=== PATIENT | male | born 1970 | race Caucasian/White ===

== ENCOUNTER 2018-04-18 14:24 | Emergency (ER) | payer OTHER ==
[2018-04-18] MEDS ORDERED: NS 1,000 ML IV ONE (14:49)
--- NOTE | 2018-04-18 14:49 | EDPHY ---
H & P Time Seen by Provider: 04/18/18 14:25 HPI/ROS: CHIEF COMPLAINT: Lightheadedness HISTORY OF PRESENT ILLNESS: 47-year-old male presents with lightheadedness. He was standing at work just prior to arrival, when he began to feel lightheaded. He splashed some water on his face and sat down. He felt better after sitting down. He stood up again and had recurrent lightheadedness. After sitting down again, the lightheadedness went away. He then talked to a co -worker and EMS was called. He is asymptomatic currently. He flew from [place] to [place] yesterday. He slept 2 hr last night. REVIEW OF SYSTEMS: complete 10 point ROS reviewed and is negative except for the noted elements in the HPI - Social History Alcohol Use: Sober Drug Use: None - Physical Exam Exam: General Appearance: Alert, pleasant Eyes: Pupils equal and round, no conjunctival pallor or injection ENT, Mouth: Mucous membranes moist Neck: Normal inspection Respiratory: Lungs are clear to auscultation Cardiovascular: Regular rate and rhythm, no murmur Gastrointestinal: Abdomen is soft and nontender Neurological: A&O, nonfocal, normal gait Skin: Warm and dry, no rash Extremities: Nontender, no pedal edema Psychiatric: Mood and affect normal Constitutional: Initial Vital Signs Temperature (C) 37 C 04/18/18 14:46 Heart Rate 78 04/18/18 14:46 Respiratory Rate 16 04/18/18 14:46 Blood Pressure 152/99 H 04/18/18 14:46 O2 Sat (%) 95 04/18/18 14:46 O2 Delivery Mode Room Air Allergies/Adverse Reactions: No Known Allergies Allergy (Unverified 04/18/18 14:44) Home Medications: Medication Instructions Recorded Tamiflu 04/18/18 Medical Decision Making - Diagnostics EKG Interpretation: EKG interpreted by me reveals normal sinus rhythm, rate 81, no ST or T segment changes. Interpretation: Normal EKG ED Course/Re-evaluation: This patient presents with lightheadedness likely secondary to lack of sleep and stress. Stat EKG reveals no evidence of ischemia or dysrhythmia. Vital signs are normal now. Laboratory tests are unremarkable. IV normal saline 1 L given. Ambulated throughout the emergency department and was asymptomatic, no lightheadedness. The patient will return for worsening symptoms or any concerns. Follow-up with PCP. Differential Diagnosis: Differential diagnosis includes though is not limited to cardiac dysrhythmia, CVA, TIA, GI bleed, sepsis, hypoglycemia. - Data Points Laboratory Results: Laboratory Results 04/18/18 14:50 04/18/18 14:50 Medications Given: Discontinued Medications Sodium Chloride (Ns) 1,000 mls @ 0 mls/hr IV EDNOW ONE; Wide Open PRN Reason: Protocol Stop: 04/18/18 14:50 Last Admin: 04/18/18 14:56 Dose: 1,000 mls Point of Care Test Results: Chemistry 04/18/18 14:58 POC Troponin I 0.00 ng/mL ng/mL (0.00-0.08) Departure - Departure Disposition: Home, Routine, Self-Care Clinical Impression: Near syncope Condition: Good Instructions: Near Syncope (ED) Additional Instructions: Drink plenty of fluids and get plenty of sleep. Return for recurrent symptoms or any concerns. Referrals: Ruben Mera MD [Medical Doctor] - As per Instructions
[2018-04-18 15:12] LABS: PLATELET COUNT 282 10^3/uL (150-400)
[2018-04-18 15:49] VITALS: BP 142/84
--- NOTE | 2018-04-18 20:22 | CPEKG ---
Test Reason : OPEN Blood Pressure : / mmHG Vent. Rate : 081 BPM Atrial Rate : 082 BPM P-R Int : 164 ms QRS Dur : 094 ms QT Int : 394 ms P-R-T Axes : 035 053 020 degrees QTc Int : 458 ms Sinus rhythm Confirmed by Kathryn Ga ([id number]) on 04/18/2018 8:21:31 PM Referred By: KATHRYN GA Confirmed By:Kathryn Ga
== END 2018-04-18 16:06 | disposition home or self-care (01) ==
DX: R55 Syncope and collapse (principal)
CPT/HCPCS: 84484-ER